=== PATIENT | male | born 1985 ===

== ENCOUNTER 2018-08-15 15:32 | Emergency (ER) | payer OTHER ==
--- NOTE | 2018-08-15 16:33 | EDPHY ---
H & P Stated Complaint: spinal surg may 1 month ago having numbness r side saw neurology.now const - Personal History Current Tetanus Diphtheria and Acellular Pertussis (TDAP): Yes - Medical/Surgical History Hx Asthma: No Hx Chronic Respiratory Disease: No Hx Diabetes: No Hx Cardiac Disease: No Hx Renal Disease: No Hx Cirrhosis: No Hx Alcoholism: No Hx HIV/AIDS: No Hx Splenectomy or Spleen Trauma: No Other PMH: spinal surgery - Social History Smoking Status: Never smoked <Liz Morin - Last Filed: 08/15/18 16:59> <Doug Siddiqui - Last Filed: 08/15/18 22:44> Time Seen by Provider: 08/15/18 15:39 HPI/ROS: CHIEF COMPLAINT: New onset right lower extremity radiculopathy HISTORY OF PRESENT ILLNESS: 33-year-old male with history of C5-C6, C6-C7 disc replacement in May 2018 presents to the ER complaining of new onset right lower extremity radiculopathy. He describes that for the past 1 month with certain movements of his head and neck, particularly certain flexion movements , he could elicit right lower extremity radicular pain. However the radiculopathy was only present with certain movements of the head and neck. Today, he went for a walk and noticed that the right lower extremity paresthesia are present regardless of position of his head. He is also complaining of right lumbar pain. He denies: Saddle anesthesia, incontinence, retention, footdrop, upper extremity weakness paresthesia, chest or abdominal weakness or paresthesia. REVIEW OF SYSTEMS: 10 systems reviewed and negative with the exception of the elements mentioned in the history of present illness PAST MEDICAL & SURGICAL HISTORY: C5-C6, C6-C7 disc replacement in May 2018 secondary to disc herniation and pain performed at the [facility] [place], [place]. T4 herniation seen on last MRI in [place]. SOCIAL HISTORY: Nonsmoker. No IV drug use PHYSICAL EXAM (Prior to examination, patient consented to physical exam, hands were washed and my usual and customary physical exam procedures followed) 1) GENERAL: Well-developed, well-nourished, alert and oriented. Appears to be in no acute distress. 2) HEAD: Normocephalic, atraumatic 3) HEENT: Pupils equal, round, reactive to light bilaterally. Sclera anicteric. Nasopharynx, oropharynx, clear, no lesions. Moist Mucous membranes. 4) NECK: Full range of motion, no meningeal signs. 5) LUNGS: Clear auscultation bilaterally, no wheezes, no rhonchi, no retractions. 6) HEART: Regular rate and rhythm, no murmur, no heave, no gallop. 7) ABDOMEN: No guarding, no rebound, no focal tenderness, negative McBurney's, negative Handy's, negative Rovsing's, negative peritoneal sign, 8) MUSCULOSKELETAL: Moving all extremities, no focal areas of tenderness, no obvious trauma. No peripheral edema or discoloration. Lower extremity patella and Achilles reflexes intact to bilaterally strength 5/5. 9) BACK: No midline cervical, thoracic, lumbar pain. Tender to palpation right paraspinous lumbar region. No lesions. vertebral tenderness, no fluctuance, no step-off, no obvious trauma, no visual or palpable abnormality. 10) SKIN: No rash, no petechiae. 11) CERVICAL SPINE NEURO EXAM: Bilateral reflexes of biceps triceps brachioradialis intact equal bilaterally Motor exam: deltoid, biceps, wrist extension, tricep, finger extension, finger flexion, finger abduction intact equal bilaterally 5/5 12) NEURO: Awake, alert, and oriented to person, place and time. Answers questions appropriately. There were no obvious focal neurologic abnormalities. No cerebellar dysfunction. Cranial nerves 2 through to 12 intact. Normal steady gait. Upper and lower extremities bilaterally with strength 5 / 5, reflexes 2+. DIFFERENTIAL DIAGNOSIS: In no particular order including but not limited to cauda equina, spinal infectious etiology, hematoma (Liz Morin Sherry) Constitutional: Initial Vital Signs Temperature (C) 36.7 C 08/15/18 15:35 Heart Rate 88 08/15/18 15:35 Respiratory Rate 18 08/15/18 15:35 Blood Pressure 118/72 08/15/18 15:35 O2 Sat (%) 97 08/15/18 15:35 O2 Delivery Mode Room Air Allergies/Adverse Reactions: No Known Allergies Allergy (Unverified 08/15/18 15:35) Home Medications: Medication Instructions Recorded [id number] 08/15/18 Medical Decision Making <iLz Morin Sherry - Last Filed: 08/15/18 16:59> - Diagnostics Imaging: Discussed imaging studies w/ [employer] Radi[facility] <Doug Siddiqui - Last Filed: 08/15/18 22:44> - Diagnostics Imaging Results: Imaging Impressions Lumbar Spine MRI 08/15/18 16:08 Impression: There are broad-based circumferential disk bulges from L2-L3 through L5-S1, with moderate central canal stenosis at L2-L3, and moderate bilateral neural foraminal stenoses at L2-L3 and L3-L4. Findings were discussed with Doug Siddiqui M.D. at 19:10, on 08/15/2018. Cervical Spine MRI 08/15/18 16:17 Impression: 1. Postoperative features at C5-C6 and C6-C7 with magnetic susceptibility artifact limiting some diagnostic accuracy, although there are features concerning for potential severe central canal stenoses and accompanying neural foraminal impingement, and a tiny central syrinx at these levels. 2. There are small dorsal disk osteophyte complexes C3-C4 and C4-C5 with some associated narrowing of the left neural foramina, as above-detailed. Correlation with prior studies would be helpful to assess for more specific interval change. Findings were discussed with Doug Siddiqui M.D. at 19:10, on 08/15/2018. Thoracic Spine MRI 08/15/18 16:17 Impression: Multilevel degenerative changes with dorsal disk osteophyte complexes seen at T3-T4, T7-T8, T8-T9, and T9-T10, with some resultant lateral recess and paracentral canal impingement, greatest at the T9-T10 level. There is no evidence of cord edema. Please see the above discussion for specific details at each referenced level. Findings were discussed with Doug Siddiqui M.D. at 19:10, on 08/15/2018. ED Course/Re-evaluation: 4:30 p.m.: To the patient's new onset right lower extremity paresthesia I recommended MRI of the lumbar spine. Given his history of cervical surgery and a known T4 fracture as well as his complaints of intermittent right lower extremity radiculopathy reproducible with movement of the head and neck, also recommended MRI of the cervical and thoracic spine. 5:00 p.m.: Care turned over to Dr. Doug Siddiqui pending MRI results (Liz Morin ) Other Provider: PHYSICIAN DOCUMENTATION: The patient was evaluated and managed by the Physician Silver Buffer and myself. I have reviewed the chart and agree with the findings and plan of care as documented. In addition, I examined the patient myself at 1940. History confirmed as leg symptoms which today happen walking the dog without hyperextension of his neck. Physical findings as follows: Right now has bilateral sensation intact and equal to light touch in both lower extremities. Moderate central stenosis at L2-3 and L3-4, Amanda; no focal acute disk herniation. Thoracic shows multilevel degenerative disease greatest at T9-10, previous cervical surgery central stenosis centrally, syrinx also present. Discussed with Kya 191 and 193; he reviewed the MRIs, and recommends flexion extension x-rays, [place] collar, clinic followup on Friday or Friday this week. Discussed with the patient in detail. He actually had flexion-extension films done as an outpatient about 8 days ago and he has those which he can bring to Dr. Boland's office. He said the official reading was that there was not any instability on flexion or extension. I am the secondary supervising physician. (Doug Siddiqui) Departure <Liz Morin - Last Filed: 08/15/18 16:59> <Doug Siddiqui - Last Filed: 08/15/18 22:44> - Departure Disposition: Home, Routine, Self-Care Clinical Impression: Lumbar radiculopathy, acute Spinal stenosis Qualifiers: Spinal region: unspecified Qualified Code(s): M48.00 - Spinal stenosis, site unspecified Condition: Good Instructions: Cervical Spinal Stenosis (ED), Lumbar Radiculopathy (ED) Additional Instructions: Seek medical attention if you develop new or worsening pain, if you develop bladder or bowel dysfunction, numbness around your perineum, foot drop, or any other symptoms that concern you. Wear collar as instructed, follow-up with neurosurgeon Friday or Friday. Referrals: Maxx Boland MD [Medical Doctor] - 08/17/18
[2018-08-15 18:55] VITALS: BP 112/76
== END 2018-08-15 19:55 | disposition home or self-care (01) ==
DX: M54.16 Radiculopathy, lumbar region (principal); M48.061 Spinal stenosis, lumbar region without neurogenic claudication
CPT/HCPCS: L0174